=== PATIENT | female | born 1995 | race Two or more races ===

== ENCOUNTER 2023-06-09 05:10 | Inpatient (IN) | payer MEDICAID ==
[~2023-06-09] VITALS: Ht 165.1 cm; Wt 88.5 kg
[2023-06-09] VITALS (12 sets, daily range): BP systolic 93–113; BP diastolic 57–75; TEMP 98.1–99; O2SAT 91–99
[2023-06-09] MEDS ORDERED: ONDANSETRON HCL/PF 4 MG/2 ML VIAL ONE (05:26)
[2023-06-09] MEDS ORDERED: FAMOTIDINE/PF INJ 20 MG/2 ML VIAL IV ONE ×3 (05:26→13:44)
[2023-06-09] MEDS ORDERED: ONDANSETRON HCL/PF 4 MG/2 ML VIAL IVP ONE (05:30)
[2023-06-09] MEDS ORDERED: IV NS 0.9% 1,000 ML BAG IV ONE (05:30)
[2023-06-09 05:59] LABS: BASOPHILS % (AUTO) 0.2 % (0.0-2.0); EOSINOPHILS % (AUTO) 0.1 % (0.0-6.0); HEMATOCRIT 34 % (33-45); HEMOGLOBIN 11.2 g/dL (11.5-14.8); LYMPHOCYTES # (AUTO) 2.7 K/uL (0.8-4.8); LYMPHOCYTES % (AUTO) 14.8 % (20.0-44.0); MEAN CORPUSCULAR HEMOGLOBIN 29 PG (26.0-33.0); MEAN CORPUSCULAR HGB CONC 33 g/dl (31.0-36.0); MEAN CORPUSCULAR VOLUME 88 fL (82-100); MONOCYTES # (AUTO) 0.7 K/uL (0.1-1.30); MONOCYTES % (AUTO) 3.9 % (2.0-12.0); NEUTROPHILS # (AUTO) 14.6 K/uL (1.8-8.9); PLATELET COUNT (AUTO) 392 K/uL (150-450); RED BLOOD CELL COUNT(AUTO) 3.83 MIL/uL (4.0-5.2); RED CELL DISTRIBUTION WIDTH 13.3 % (11.5-15.0)
[2023-06-09 06:07] LABS: CALCIUM, SERUM 8.9 mg/dL (8.5-10.1); CREATININE 1.8 mg/dL (0.6-1.3); POTASSIUM 3.3 mmol/L (3.5-5.1)
[2023-06-09 06:13] LABS: ALBUMIN 3.5 g/dL (3.4-5.0); BILIRUBIN,DIRECT 0.1 mg/dL (0.0-0.2); BILIRUBIN,TOTAL 0.4 mg/dL (0.2-1.0); MAGNESIUM 2.7 mg/dL (1.8-2.4); TOTAL PROTEIN, SERUM 6.8 g/dL (6.4-8.2)
[2023-06-09] MEDS ORDERED: POTASSIUM CHLORIDE 20 MEQ TAB.PRT.SR PO ONE ×2 (06:25→06:30)
[2023-06-09] MEDS ORDERED: INSULIN REGULAR, HUMAN 100 UNIT/ML 10 ML VIAL SQ ONE (06:30)
[2023-06-09] MEDS ORDERED: PIPERACI/TAZO 3.375GM/D5W 50ML PB IV ONE (07:22)
[2023-06-09 07:30] LABS: SITE, VBG Other; VBG BASE EXCESS -12.8 mmol/L (-3-3); VBG COHb 0.1 %; VBG MetHb 3.9 %; VBG O2Hb 15.9 %; VBG OXYGEN SATURATION 16.6 %; VBG PCO2 30.4 mmHg (40-52); VBG PH 7.254 (7.31-7.41); VBG PO2 16.3 mmHg (30-50); VBG TOTAL HEMOGLOBIN 6.2 G/dL (12.0-16.0); VENT MODE, VBG RA 21%
[2023-06-09] MEDS ORDERED: PIPERACILLIN /TAZOBACTAM 3.375 G in IV D5W 50 ML IV ONE (07:30)
[2023-06-09] MEDS ORDERED: IV LR 1000 ML 1,000 ML IV ONE ×2 (07:30→09:00)
[2023-06-09] MEDS ORDERED: IOHEXOL-300 100 ML VIAL IV ONE (07:51)
[2023-06-09] MEDS ORDERED: IV NS 0.9% 250 ML IV ONE (07:51)
[2023-06-09] MEDS ORDERED: CT SWABBABLE VALVE TRANS SET 1 EA INFUS.SET MC ONE (07:51)
[2023-06-09 08:17] LABS: LACTIC ACID 6.1 mmol/L (0.4-2.0)
[2023-06-09 08:45] LABS: SITE, VBG Other; VBG BASE EXCESS -5.5 mmol/L (-3-3); VBG COHb 0.2 %; VBG MetHb 4.2 %; VBG O2Hb 10.5 %; VBG PCO2 50.2 mmHg (40-52); VBG PH 7.248 (7.31-7.41); VBG PO2 11.9 mmHg (30-50); VBG TOTAL HEMOGLOBIN 7.6 G/dL (12.0-16.0); VENT MODE, VBG RA 21%
[2023-06-09 10:53] LABS: PREGNANCY TEST URINE QUAL POSITIVE (NEGATIVE)
[2023-06-09 10:54] LABS: APPEARANCE,URINE CLOUDY (CLEAR); BILIRUBIN,URINE NEGATIVE (NEGATIVE); BLOOD, URINE 3+ Ery/uL (NEGATIVE); COLOR,URINE YELLOW (YELLOW); KETONES,URINE NEGATIVE (NEGATIVE); LEUKOCYTE ESTERASE ,URINE NEGATIVE (NEGATIVE); NITRITE, URINE NEGATIVE (NEGATIVE); PH,URINE 6.5 (5.0-8.0); PROTEIN,URINE 2+ mg/dl (NEGATIVE); UGLUCOSE TRACE mg/dL (NEGATIVE); UROBILINOGEN,URINE 0.2 EU/dL (0.2)
[2023-06-09 11:05] LABS: ADD URINE CULTURE NO; BACTERIA,URINE Rare /HPF (None Seen); SQUAMOUS EPITHELIAL CELL,UR Few /HPF (None Seen)
[2023-06-09 11:21] LABS: ACETONE, SERUM NEGATIVE (NEGATIVE)
[2023-06-09 11:31] LABS: CALCIUM, SERUM 7.9 mg/dL (8.5-10.1); CARBON DIOXIDE 16 mmol/L (21-32); CHLORIDE 105 mmol/L (98-107); CREATININE 1.6 mg/dL (0.6-1.3); GLUCOSE 276 mg/dL (74-106); POTASSIUM 4.1 mmol/L (3.5-5.1); SODIUM SERUM 138 mmol/L (136-145); UREA NITROGEN, BLOOD 22 mg/dL (7-18)
[2023-06-09 11:57] LABS: BASOPHILS % (AUTO) 0.1 % (0.0-2.0); EOSINOPHILS % (AUTO) 0.1 % (0.0-6.0); LYMPHOCYTES # (AUTO) 1.9 K/uL (0.8-4.8); LYMPHOCYTES % (AUTO) 9.4 % (20.0-44.0); MEAN CORPUSCULAR HEMOGLOBIN 30 PG (26.0-33.0); MEAN CORPUSCULAR HGB CONC 34 g/dl (31.0-36.0); MEAN CORPUSCULAR VOLUME 88 fL (82-100); MONOCYTES # (AUTO) 1.2 K/uL (0.1-1.30); MONOCYTES % (AUTO) 5.8 % (2.0-12.0); NEUTROPHILS % (AUTO) 84.6 % (43.0-81.0); PLATELET COUNT (AUTO) 309 K/uL (150-450); RED BLOOD CELL COUNT(AUTO) 2.28 MIL/uL (4.0-5.2); RED CELL DISTRIBUTION WIDTH 13.3 % (11.5-15.0); WHITE BLOOD COUNT (AUTO) 20.1 K/uL (4.3-11.0)
[2023-06-09] MEDS ORDERED: IV NS 0.9% 1,000 ML IV ONE (12:00)
[2023-06-09 12:02] LABS: HEMATOCRIT 20 % (33-45); HEMOGLOBIN 6.8 g/dL (11.5-14.8)
[2023-06-09 12:10] LABS: INR 1.2 (0.91-1.10); PARTIAL THROMBOPLASTIN TIME 23.2 SEC (24.3-34.3); PROTHROMBIN TIME 12.5 SECS (9.2-11.1)
[2023-06-09] MEDS ORDERED: FENTANYL PF 100MCG/2ML AMPUL IV ONE (12:30)
[2023-06-09 13:07] LABS: BAND % (MANUAL) 6 % (0.0-5.0); BASOPHILS % (MANUAL) 0 % (0.0-2.0); EOSINOPHILS % (MANUAL) 0 % (0-4); LYMPHOCYTES % (MANUAL) 8 % (16-48); MONOCYTES % (MANUAL) 5 % (0-11.0); NEUTROPHILS % (MANUAL) 81 (42-76)
[2023-06-09 13:08] LABS: ANISOCYTOSIS 1+; PLATELET ESTIMATE ADEQUATE
[2023-06-09] MEDS ORDERED: MEPERIDINE25 MG SYR 25 MG/ML VIAL ONE (13:19)
[2023-06-09] MEDS ORDERED: FENTANYL PF 100MCG/2ML AMPUL ONE (13:19)
[2023-06-09] MEDS ORDERED: MIDAZOLAM HCL 2 MG/2ML VIAL ONE (13:19)
[2023-06-09] MEDS ORDERED: BUPIVACAINE MPF 0.5% W/EPI INJ 30 ML VIAL ONE (13:27)
[2023-06-09] MEDS ORDERED: BUPIVACAINE 0.25% 75 MG/30 ML VIAL ONE (13:27)
[2023-06-09] MEDS ORDERED: HEMOSTATIC MATRIX 8 ML 1 EACH PAD MC ONE (13:29)
[2023-06-09] MEDS ORDERED: ROCURONIUM BROMIDE 50 MG/5 ML ONE (13:44)
[2023-06-09 14:56] LABS: BASOPHILS % (AUTO) 0.1 % (0.0-2.0); HEMATOCRIT 26 % (33-45); HEMOGLOBIN 8.6 g/dL (11.5-14.8); LYMPHOCYTES # (AUTO) 2.4 K/uL (0.8-4.8); LYMPHOCYTES % (AUTO) 10.9 % (20.0-44.0); MEAN CORPUSCULAR HEMOGLOBIN 30 PG (26.0-33.0); MEAN CORPUSCULAR HGB CONC 34 g/dl (31.0-36.0); MEAN CORPUSCULAR VOLUME 89 fL (82-100); MONOCYTES # (AUTO) 1.7 K/uL (0.1-1.30); MONOCYTES % (AUTO) 7.7 % (2.0-12.0); NEUTROPHILS # (AUTO) 17.8 K/uL (1.8-8.9); NEUTROPHILS % (AUTO) 81.3 % (43.0-81.0); PLATELET COUNT (AUTO) 252 K/uL (150-450); RED BLOOD CELL COUNT(AUTO) 2.89 MIL/uL (4.0-5.2); WHITE BLOOD COUNT (AUTO) 21.9 K/uL (4.3-11.0)
[2023-06-09 15:31] LABS: CALCIUM, SERUM 6.2 mg/dL (8.5-10.1); CREATININE 1.1 mg/dL (0.6-1.3)
[2023-06-09 15:34] LABS: POTASSIUM 6.4 mmol/L (3.5-5.1)
[2023-06-09 15:34] LABS: INR 1.19 (0.91-1.10); PROTHROMBIN TIME 12.4 SECS (9.2-11.1)
[2023-06-09 15:53] LABS: PARTIAL THROMBOPLASTIN TIME 98.2 SEC (24.3-34.3)
[2023-06-09] MEDS ORDERED: MORPHINE SULFATE INJ 10 MG/ML DISP.SYRIN IV PRN (16:30)
[2023-06-09] MEDS ORDERED: ONDANSETRON HCL/PF 4 MG/2 ML VIAL IVP PRN ×2 (16:30→18:00)
[2023-06-09] MEDS: IV NS 0.9% 1,000 ML IV PRN (17:36)
[2023-06-09] MEDS ORDERED: IV NS 0.9% 1,000 ML IV SCH (18:00)
[2023-06-09] MEDS ORDERED: MORPHINE SULFATE INJ 2 MG/ML DISP.SYRIN IV PRN (18:00)
[2023-06-09] MEDS: CEFTRIAXONE 1 G in IV D5W 50 ML IV SCH (19:12)
[2023-06-09] MEDS: MORPHINE SULFATE INJ 4 MG/ML DISP.SYRIN IV PRN (19:20)
[2023-06-09] MEDS: METRONIDAZOLE 500MG/ NS 100ML 500 MG in PREMIX 1 EA IV SCH (19:56)
[2023-06-09 20:29] LABS: HEMOGLOBIN 8.3 g/dL (11.5-14.8)
[2023-06-09 20:50] LABS: INR 1.1 (0.91-1.10); PARTIAL THROMBOPLASTIN TIME 23.4 SEC (24.3-34.3); PROTHROMBIN TIME 11.5 SECS (9.2-11.1)
[2023-06-09] MEDS: ANCEF 1 GM/50 ML D5W IV SCH ×2 (22:19)
[2023-06-10] VITALS (27 sets, daily range): BP systolic 95–132; BP diastolic 45–93; TEMP 97.9–99.7; O2SAT 89–98
[2023-06-10] MEDS: MORPHINE SULFATE INJ 4 MG/ML DISP.SYRIN IV PRN ×3 (02:35→16:25)
[2023-06-10 03:02] LABS: INR 1.07 (0.91-1.10); PROTHROMBIN TIME 11.2 SECS (9.2-11.1)
[2023-06-10] MEDS: METRONIDAZOLE 500MG/ NS 100ML 500 MG in PREMIX 1 EA IV SCH ×3 (03:36→19:56)
[2023-06-10] MEDS: IV NS 0.9% 1,000 ML IV PRN ×3 (03:41→19:56)
[2023-06-10 04:57] LABS: ALBUMIN 2.2 g/dL (3.4-5.0); BILIRUBIN,TOTAL 0.4 mg/dL (0.2-1.0); CREATININE 0.9 mg/dL (0.6-1.3); MAGNESIUM 1.4 mg/dL (1.8-2.4); PHOSPHORUS 3.3 mg/dL (2.5-4.9); POTASSIUM 3.7 mmol/L (3.5-5.1); TOTAL PROTEIN, SERUM 4.2 g/dL (6.4-8.2)
[2023-06-10 05:08] LABS: BASOPHILS % (AUTO) 0.2 % (0.0-2.0); LYMPHOCYTES # (AUTO) 1.5 K/uL (0.8-4.8); LYMPHOCYTES % (AUTO) 15.9 % (20.0-44.0); MEAN CORPUSCULAR HEMOGLOBIN 30 PG (26.0-33.0); MEAN CORPUSCULAR HGB CONC 34 g/dl (31.0-36.0); MEAN CORPUSCULAR VOLUME 87 fL (82-100); MONOCYTES # (AUTO) 0.9 K/uL (0.1-1.30); MONOCYTES % (AUTO) 9.5 % (2.0-12.0); NEUTROPHILS # (AUTO) 6.8 K/uL (1.8-8.9); NEUTROPHILS % (AUTO) 74.4 % (43.0-81.0); PLATELET COUNT (AUTO) 147 K/uL (150-450); RED BLOOD CELL COUNT(AUTO) 2.29 MIL/uL (4.0-5.2); RED CELL DISTRIBUTION WIDTH 13.8 % (11.5-15.0); WHITE BLOOD COUNT (AUTO) 9.2 K/uL (4.3-11.0)
[2023-06-10 05:26] LABS: HEMATOCRIT 20 % (33-45); HEMOGLOBIN 6.8 g/dL (11.5-14.8)
[2023-06-10] MEDS: ANCEF 1 GM/50 ML D5W IV SCH ×2 (05:37)
[2023-06-10] MEDS ORDERED: Calcium Gluconate 0.465 MEQ/ML VIAL IV ONE (05:46)
[2023-06-10] MEDS ORDERED: Calcium Gluconate 1GM/10ML 4.65 MEQ in IV NS 0.9% 100 ML IV ONE (06:00)
[2023-06-10] MEDS: ACETAMINOPHEN 325 MG TABLET PO PRN ×2 (08:52→16:41)
[2023-06-10] MEDS: Magnesium 1GM/D5W 100ML PREMIX 100 ML IV SCH ×4 (09:52→15:16)
[2023-06-10 11:10] LABS: LYMPHOCYTES % (MANUAL) 21 % (16-48); MONOCYTES % (MANUAL) 7 % (0-11.0); NEUTROPHILS % (MANUAL) 72 (42-76)
[2023-06-10 11:17] LABS: ANISOCYTOSIS 1+; PLATELET ESTIMATE DECREASED
[2023-06-10] MEDS: HYDROCODONE/APAP 5/325MG TABLET PO PRN ×3 (11:36→22:10)
[2023-06-10 16:40] LABS: BASOPHILS % (AUTO) 0.2 % (0.0-2.0); EOSINOPHILS % (AUTO) 0.1 % (0.0-6.0); HEMATOCRIT 32 % (33-45); HEMOGLOBIN 10.8 g/dL (11.5-14.8); LYMPHOCYTES # (AUTO) 1.8 K/uL (0.8-4.8); MEAN CORPUSCULAR HEMOGLOBIN 30 PG (26.0-33.0); MEAN CORPUSCULAR HGB CONC 34 g/dl (31.0-36.0); MEAN CORPUSCULAR VOLUME 87 fL (82-100); MONOCYTES # (AUTO) 1.1 K/uL (0.1-1.30); MONOCYTES % (AUTO) 10.7 % (2.0-12.0); NEUTROPHILS # (AUTO) 7.6 K/uL (1.8-8.9); PLATELET COUNT (AUTO) 160 K/uL (150-450); RED BLOOD CELL COUNT(AUTO) 3.66 MIL/uL (4.0-5.2); RED CELL DISTRIBUTION WIDTH 14.8 % (11.5-15.0); WHITE BLOOD COUNT (AUTO) 10.6 K/uL (4.3-11.0)
[2023-06-10 17:11] LABS: INR 1.01 (0.91-1.10); PARTIAL THROMBOPLASTIN TIME 26.5 SEC (24.3-34.3); PROTHROMBIN TIME 10.6 SECS (9.2-11.1)
[2023-06-10] MEDS: CEFTRIAXONE 1 G in IV D5W 50 ML IV SCH (18:13)
[2023-06-11] VITALS: BP 118/75; TEMP 99.1; O2SAT 92
[2023-06-11 00:04] LABS: BASOPHILS % (AUTO) 0.1 % (0.0-2.0); EOSINOPHILS % (AUTO) 0.2 % (0.0-6.0); HEMATOCRIT 26 % (33-45); HEMOGLOBIN 8.9 g/dL (11.5-14.8); LYMPHOCYTES # (AUTO) 1.5 K/uL (0.8-4.8); LYMPHOCYTES % (AUTO) 14.7 % (20.0-44.0); MEAN CORPUSCULAR HEMOGLOBIN 29 PG (26.0-33.0); MEAN CORPUSCULAR HGB CONC 34 g/dl (31.0-36.0); MEAN CORPUSCULAR VOLUME 86 fL (82-100); MONOCYTES # (AUTO) 1.2 K/uL (0.1-1.30); MONOCYTES % (AUTO) 11.8 % (2.0-12.0); NEUTROPHILS # (AUTO) 7.5 K/uL (1.8-8.9); NEUTROPHILS % (AUTO) 73.2 % (43.0-81.0); PLATELET COUNT (AUTO) 146 K/uL (150-450); RED BLOOD CELL COUNT(AUTO) 3.02 MIL/uL (4.0-5.2); RED CELL DISTRIBUTION WIDTH 14.2 % (11.5-15.0); WHITE BLOOD COUNT (AUTO) 10.2 K/uL (4.3-11.0)
[2023-06-11] MEDS: HYDROCODONE/APAP 5/325MG TABLET PO PRN ×2 (02:00→07:39)
[2023-06-11] MEDS: METRONIDAZOLE 500MG/ NS 100ML 500 MG in PREMIX 1 EA IV SCH ×2 (03:42→11:51)
[2023-06-11 04:00] VITALS: BP 117/83; TEMP 99.5; O2SAT 97
[2023-06-11 05:43] LABS: BASOPHILS % (AUTO) 0.2 % (0.0-2.0); EOSINOPHILS % (AUTO) 0.2 % (0.0-6.0); HEMATOCRIT 27 % (33-45); LYMPHOCYTES # (AUTO) 1.5 K/uL (0.8-4.8); MEAN CORPUSCULAR HEMOGLOBIN 29 PG (26.0-33.0); MEAN CORPUSCULAR HGB CONC 34 g/dl (31.0-36.0); MEAN CORPUSCULAR VOLUME 86 fL (82-100); MONOCYTES # (AUTO) 1.2 K/uL (0.1-1.30); NEUTROPHILS # (AUTO) 7.4 K/uL (1.8-8.9); NEUTROPHILS % (AUTO) 72.6 % (43.0-81.0); PLATELET COUNT (AUTO) 154 K/uL (150-450); RED BLOOD CELL COUNT(AUTO) 3.07 MIL/uL (4.0-5.2); RED CELL DISTRIBUTION WIDTH 14.5 % (11.5-15.0); WHITE BLOOD COUNT (AUTO) 10.2 K/uL (4.3-11.0)
[2023-06-11 06:19] LABS: ALBUMIN 2.7 g/dL (3.4-5.0); BILIRUBIN,TOTAL 0.5 mg/dL (0.2-1.0); CALCIUM, SERUM 7.7 mg/dL (8.5-10.1); CREATININE 0.7 mg/dL (0.6-1.3); MAGNESIUM 1.9 mg/dL (1.8-2.4); PHOSPHORUS 2.1 mg/dL (2.5-4.9); POTASSIUM 3.4 mmol/L (3.5-5.1); TOTAL PROTEIN, SERUM 5.6 g/dL (6.4-8.2)
[2023-06-11 07:00] VITALS: BP 118/78; TEMP 100; O2SAT 94
[2023-06-11 08:14] VITALS: BP 118/78; TEMP 100; O2SAT 97
[2023-06-11] MEDS: POTASSIUM CL. PREMIX PERIPHER. 50 ML IV SCH ×2 (09:55→10:58)
[2023-06-11] MEDS: ACETAMINOPHEN 325 MG TABLET PO PRN (09:59)
[2023-06-11 12:00] VITALS: BP 120/78; TEMP 98.6; O2SAT 97
== END 2023-06-11 14:00 | disposition home or self-care (01) | DRG 547 ==
LOC: ER 05:11 → ICU 14:57 → MED 06-10 20:30
PROVIDERS: ADMIT Internal Medicine; ATTEND Obstetrics & Gynecology
PROC: 10T20ZZ Resection of Products of Conception, Ectopic, Open Approach (ICD-10-PCS; principal; 2023-06-09)
PROC: 0UB60ZZ Excision of Left Fallopian Tube, Open Approach (ICD-10-PCS; 2023-06-09)
PROC: 30233N1 Transfusion of Nonautologous Red Blood Cells into Peripheral Vein, Percutaneous Approach (ICD-10-PCS; 2023-06-09)
PROC: 0UB00ZZ Excision of Right Ovary, Open Approach (ICD-10-PCS; 2023-06-09)
DX: O00.102 Left tubal pregnancy without intrauterine pregnancy (principal); N17.0 Acute kidney failure with tubular necrosis; O08.3 Shock following ectopic and molar pregnancy; D62 Acute posthemorrhagic anemia; E87.20 Acidosis, unspecified; N83.201 Unspecified ovarian cyst, right side; Z20.822 Contact with and (suspected) exposure to COVID-19; E87.5 Hyperkalemia; E86.1 Hypovolemia; N39.0 Urinary tract infection, site not specified; B96.89 Other specified bacterial agents as the cause of diseases classified elsewhere
CPT/HCPCS: 36415; 76856-TC; 80048-TC; 80053-TC; 80076-TC; 81001; 82010-TC; 82803-TC; 83605-TC; 83690-TC; 83735-TC; 84100-TC; 84702-TC; 84703-TC; 85025-TC; 85027-TC; 85610-TC; 85730-TC; 86850-TC; 87040-TC; 88305-TC; 94799-TC; A4216; A4223; A6402; C9803; G0378; J0330; J0610; J0690; J0696; J1100; J1885; J2175; J2250; J2270; J2370; J2405; J2543; J2704; J2765; J3010; J3475; J3480; J3490; J7030; J7050; J7060; J7120; P9016; Q9967